=== PATIENT | female | born 1970 ===

== ENCOUNTER 2020-10-28 07:43 | Day surgery (SDC) | payer OTHER ==
[2020-10-28] MEDS ORDERED: IBU400 MG PO (09:40)
== END 2020-10-28 13:30 | disposition home or self-care (01) ==
LOC: CIR.AMB 07:43
PROVIDERS: ATTEND Obstetrics & Gynecology Gynecology
DX: N84.0 Polyp of corpus uteri (principal); Z20.822 Contact with and (suspected) exposure to COVID-19